=== PATIENT | male | born 1985 | race Caucasian/White ===

== ENCOUNTER 2017-11-09 23:56 | Emergency (ER) | payer OTHER ==
[~2017-11-09] VITALS: Ht 182.9 cm; Wt 99.8 kg
[2017-11-10 00:02] VITALS: BP 137/97
[2017-11-10] MEDS ORDERED: DOXYCYCLINE 10100 MG PO (00:14)
== END 2017-11-10 00:26 | disposition home or self-care (01) ==
LOC: M.ERS 23:56
DX: N50.812 Left testicular pain (principal); J06.9 Acute upper respiratory infection, unspecified; Z88.2 Allergy status to sulfonamides